=== PATIENT | male | born 1950 | race Caucasian/White ===

== ENCOUNTER 2018-05-15 19:23 | Emergency (ER) | payer MEDICARE, SELFPAY ==
[2018-05-15 19:24] VITALS: BP 178/109; PULSE 84; RESP 16; TEMP 36.6; O2SAT 99; BMI 42.1
--- NOTE | 2018-05-15 19:42 | EKG12_ITS ---
Test Reason : HYPERTENSION Blood Pressure : / mmHG Vent. Rate : 073 BPM Atrial Rate : 073 BPM P-R Int : 188 ms QRS Dur : 108 ms QT Int : 432 ms P-R-T Axes : 012 -29 -38 degrees QTc Int : 475 ms Normal sinus rhythm Moderate voltage criteria for LVH, may be normal variant ST & T wave abnormality, consider anterolateral ischemia Prolonged QT Abnormal ECG Confirmed by TIFFANY WATSON, LUCHO ([id number]), restaurant expeditor JAMIE REIS ([id number]) on 05/18/2018 10:18:46 AM Referred By: ELAN Confirmed By:LUHCO ALLEN MD
--- NOTE | 2018-05-15 19:47 | ED.RN ---
NO OLD EKGS IN MUSE
[2018-05-15 19:58] LABS: Absolute Lymphocyte Count 1.66 X10^3/ul (0.83-4.51); Absolute Neutrophil Count 9.4 X10^3/uL (2.0-7.7); Basophil# 0.04 X10^3/uL; Basophil% 0.3 % (0-1); Eosinophil# 0.07 X10^3/uL; Eosinophils% 0.6 % (0-5); Hematocrit 44.1 % (40-54); Hemoglobin 14.9 g/dl (13.0-16.5); Lymphocyte # 1.66 X10^3/ul (4.0); Lymphocyte % 13.7 % (19-41); Mean Corp Hgb Conc 33.8 g/gl (32-36); Mean Corpuscular Hgb 31.6 pg (27.0-32.0); Mean Corpuscular Volume 93.6 fL (80-94); Mean Platelet Vol. 9.8 fl (6.2-12.0); Monocyte# 0.96 X10^3/uL; Monocyte% 7.9 % (0-10); Neutrophil % 77.3 % (47-70); Platelet Count 253 K/mm3 (150-450); RBC Distribution Width CV 13.4 % (11.6-14.6); RBC Distribution Width SD 45.9 fl (35.1-43.9); Red Blood Count 4.71 M/mm3 (4.6-6.2); White Blood Count 12.2 K/mm3 (4.4-11.0)
[2018-05-15 19:59] LABS: POSITIVE COUNT NO; POSITIVE DIFFERENTIAL NO; POSITIVE MORPHOLOGY NO
[2018-05-15 20:16] LABS: BUN 28 mg/dL (7-18); Estimated Creatinine Clearance 38.34 ml/min; Glucose 98 mg/dL (74-106)
[2018-05-15 20:17] LABS: Anion Gap 8 (5-15); BUN/Creat Ratio 16.5 RATIO (10-20); Chloride 103 mmol/L (98-107); EST Glomerular Filtration Rate 43 mL/min (>60); Est Glom Filt Rate - Afr Amer 52 mL/min (>60); Potassium 3.1 mmol/L (3.5-5.1); Sodium Level 141 mmol/L (136-145)
--- NOTE | 2018-05-15 21:01 | ED.VISSUMM ---
- ER Visit Summary Date of Service: 05/15/18 Chief Complaint: [Hypertension] History of Present Illness: The patient is a 68 M [presents to the emergency department complaint of elevated blood pressure. Patient states that he was driving home when he had the sensation that his blood pressure might be elevated and then he had an odd sensation in his left ankle and became concerned that he might have a blood clot. Patient has history of hypertension is being medicated. Normally his blood pressure is in the 140 systolic. 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 Patient denies any chest pain or shortness of breath. He denies recent travel or surgery otherwise.] Patient does have a history of coronary artery disease with prior cardiac stents placed in 2011. Patient has a history of hypertension and high cholesterol. Physical Examination: [HEENT-PERRLA, EOMI. Cranial nerves II through XII grossly intact. TMs clear. Mucous membranes moist. No adenopathy. Cardiovascular-regular rate and rhythm without murmur or ectopy Lungs-clear to auscultation, chest wall stable without crepitus or subcu emphysema Abdomen-normoactive bowel sounds, soft, nontender, no rebound or rigidity, no peritoneal signs. Extremities-intact ?4, normal range of motion, normal pulses, atraumatic. No significant edema of the lower extremity is noted. Negative Homans sign.] Test Results: [EKG obtained arrival shows sinus rhythm with a ventricular rate of [address] changes noted with some flipped T waves noted anteriorly. No old EKGs available for comparison. CBC with differential obtained showed a white count slightly elevated 12.2, hemoglobin 14.9, hematocrit 44, placed 253. Chemistries unremarkable other than a slightly depressed potassium of 3.1 for which I did order 40 mEq of potassium chloride p.o. His BUN was 28 and creatinine 1.7. Troponin was less than 0.015. D-dimer was normal at 0.50 when adjusted for age.] Emergency Department Course and Treatment: [None warranted] Treatment Plan: [Patient advised to keep a journal of his blood pressure over the next week and follow-up with his primary care physician within next 5-7 days.] Disposition: [Discharged home in stable condition] Impression: [Hypertension-established Stress reaction] This note was generated with [employer] dictation software. It may contain incorrect words, spelling, and punctuation that were not noted in review of the chart prior to signing ED Disposition - Plan for ED Patient: Referrals: [facility] Doctor,Out of [Primary Care Provider] -
--- NOTE | 2018-05-15 21:06 | ED.DEP ---
ED Disposition - Plan for ED Patient: Instructions: ED HTN Established, ED Stress React Referrals: [facility],Out of [Primary Care Provider] - 5-7 Days
[2018-05-15 21:17] VITALS: BP 167/85; PULSE 75; RESP 16; O2SAT 97
== END 2018-05-15 21:23 | disposition home or self-care (01) ==
LOC: ED 20:20
PROVIDERS: Emergency Provider Emergency Medicine
DX: I10 Essential (primary) hypertension (principal); F43.9 Reaction to severe stress, unspecified; E87.6 Hypokalemia; E78.00 Pure hypercholesterolemia, unspecified; Z79.82 Long term (current) use of aspirin; Z79.899 Other long term (current) drug therapy; Z95.5 Presence of coronary angioplasty implant and graft
CPT/HCPCS: 80048; 84484; 85025; 85379; 93005; 99283; A4216